=== PATIENT | female | born 2000 | race Caucasian/White ===

== ENCOUNTER 2023-07-13 11:07 | Emergency (ER) | payer OTHER, SELFPAY ==
[2023-07-13 11:09] VITALS: BP 101/53; PULSE 63; RESP 18; TEMP 36.6; O2SAT 100; BMI 30.1
--- NOTE | 2023-07-13 11:10 | ECG_ITS ---
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 Measurements Intervals [place] Rate: 65 P: 0 CO: 157 QRS: 58 QRSD: 104 T: 52 QT: 443 QTc: 461 Interpretive Statements SINUS RHYTHM LOW QRS VOLTAGE IN PRECORDIAL LEADS [QRS DEFLECTION < 1.0 mV IN CHEST LEADS] POSSIBLE RIGHT VENTRICULAR CONDUCTION DELAY [RSR (QR) IN V1/V2] No previous ECG available for comparison Electronically Signed On 07-13-2023 23:22:49 CDT by Rory Lal M.D. [id number]
[2023-07-13 11:13] VITALS: BP 101/53; PULSE 73; O2SAT 100
[2023-07-13] MEDS: sodium chloride 0.9% 1,000 ML 999 ML IV (11:19)
--- NOTE | 2023-07-13 11:20 | W.ED.SYNCOPE ---
HPI - Syncope General: Chief Complaint: Syncope Stated Complaint: Syncope Time Seen by Provider: 07/13/23 11:09 Source: patient and EMS Mode of arrival: EMS Limitations: no limitations History of Present Illness: 23-year-old female states she is at work today she felt like she is getting lightheaded and fell like she is going to pass out. States she has had history of syncopal events states she had laid on the floor and then stood up and felt like she was going to pass out again. She denies ever passing out she was hypotensive at work in the 70s she denies any pain had some slight nausea her vitals are improved here she states she feels much improved. Denies any headache Associated symptoms: Reports nausea; Deny abdominal pain, chest pain, fever(s) or headache(s) Review of Systems Const: Denies: fever(s), chills, body aches or change in appetite Eyes: Denies: eye discomfort ENMT: Denies: throat pain or dental pain Card: Reports: pre-syncope; Denies: chest pain Resp: Denies: dyspnea GI: Reports: nausea; Denies: abdominal pain, vomiting or diarrhea Musc: Denies: neck pain or back pain Skin/Breast: Denies: rash Neuro: Denies: headache(s) Physical Exam Const: COMMON NORMALS: patient oriented x3 HENMT: COMMON NORMALS: normocephalic and atraumatic HEAD & SCALP: normocephalic and atraumatic Neck/C-Spine: COMMON NORMALS: full ROM and supple Chest: COMMONS NORMALS: normal inspection of the chest Resp: COMMON NORMALS: normal respiratory effort, No retractions, No use of accessory muscles and clear to auscultation bilaterally AUSCULTATION: clear to auscultation bilaterally Cardio: COMMON NORMALS: regular rate, regular rhythm and No murmurs present (Cardio) RATE: regular rate RHYTHM: regular rhythm GI: COMMON NORMALS: Normal to inspection, nondistended, normoactive bowel sounds present, Soft to palpation, non-tender and no masses PALPATION: Yes Soft to palpation Extremity: COMMON NORMALS: normal to inspection and full ROM Neuro: COMMON NORMALS: patient oriented x3, moves all extremities and no focal motor deficits Psych: COMMON NORMALS: mental status grossly normal, Normal thought process present and cooperative THOUGHT PROCESS: Normal thought process present Skin: COMMON NORMALS: no rashes or lesions noted and no wounds GENERAL SKIN EXAM: no rashes or lesions noted Course Vital Signs: Vital signs: Vital Signs Temperature 97.9 F 07/13/23 11:09 Pulse Rate 68 07/13/23 12:06 Respiratory Rate 16 07/13/23 12:06 Blood Pressure 108/61 07/13/23 12:06 Pulse Oximetry 99 07/13/23 12:06 Oxygen Delivery Me thod Room Air 07/13/23 12:06 MDM - Syncope Medical Decision Making Patient presents here after syncopal event she has been well-appearing here EKG and blood work head CT here are all normal she has no complaints here has no signs of a PE she stable for discharge she is follow-up with PCP we will get her neurology follow-up as well return if worsening. Medical Records I reviewed the patient's medical records. Lab Data I reviewed the patient's lab results. 07/13/23 11:21 07/13/23 11:[address] 07/13/23 11:51 IMPRESSION: 1. No acute intracranial hemorrhage or edema. 2. RIGHT mastoid air cell effusions. There is a small amount of fluid also near the inner ear ossicles. Laboratory Results WBC 13.61 10^3/uL (3.29-11.43) H 07/13/23 11:21 RBC 4.21 10^6/uL (3.85-5.65) 07/13/23 11:21 Hgb 12.40 g/dL (11.27-16.99) 07/13/23 11:21 Hct 35.7 % (36-47) L 07/13/23 11:21 MCV 84.8 fl (85-98) L 07/13/23 11:21 MCH 29.5 pg (27-33) 07/13/23 11:21 MCHC 34.7 g/dL (30-55) 07/13/23 11:21 RDW 12.9 % (12.1-15.1) 07/13/23 11:21 Plt Count 346 10^3/cmm (157-399) 07/13/23 11:21 MPV 9.5 fL (7.4-10.4) 07/13/23 11:21 Neut % (Auto) 83.5 % 07/13/23 11:21 Lymph % (Auto) 9.6 % 07/13/23 11:21 [place] % (Auto) 5.7 % 07/13/23 11:21 Eos % (Auto) 0.4 % 07/13/23 11:21 Baso % (Auto) 0.4 % 07/13/23 11:21 Neut # (Auto) 11.37 10^3/uL (1.8-7.7) H 07/13/23 11:21 Lymph # (Auto) 1.3 10^3/uL (0.8-4.8) 07/13/23 11:21 [place] # (Auto) 0.8 10^3/uL (0.2-0.9) 07/13/23 11:21 Eos # (Auto) 0.1 10^3/uL (0.0-0.8) 07/13/23 11:21 Baso # (Auto) 0.1 10^3/uL (0.0-0.1) 07/13/23 11:21 Nucleated RBC % (auto) 0 % 07/13/23 11:21 Nucleated RBCs # 0.0 /100WBC 07/13/23 11:21 Sodium 138 mmol/L (136-145) 07/13/23 11:21 Potassium 4.2 mmol/L (3.5-5.1) 07/13/23 11:21 Chloride 107 mmol/L (98-107) 07/13/23 11:21 Carbon Dioxide 20 mmol/L (22-29) L 07/13/23 11:21 Anion Gap 15.2 (5-19) 07/13/23 11:21 BUN 9 mg/dL (6-20) 07/13/23 11:21 Creatinine 0.6 mg/dL (0.5-0.9) 07/13/23 11:21 GFR Calculation 123.9 mL/min (90-130) 07/13/23 11:21 Glucose 103 mg/dL (65-115) 07/13/23 11:21 Calculated Osmolality 285 mOsm/kg (285-295) 07/13/23 11:21 Calcium 8.2 mg/dL (8.5-10.5) L 07/13/23 11:21 Total Bilirubin 0.2 mg/dL (0.15-1.2) 07/13/23 11:21 AST 14 U/L (0-32) 07/13/23 11:21 ALT 15 U/L (0-33) 07/13/23 11:21 Alkaline Phosphatase 65 U/L (35-105) 07/13/23 11:21 Total Protein 6.2 g/dL (6.6-8.7) L 07/13/23 11:21 Albumin 3.5 g/dL (3.5-5.2) 07/13/23 11:21 Globulin 2.7 g/dL (1.3-4.6) 07/13/23 11:21 HCG, Qual Negative (Negative) 07/13/23 11:21 No radiology studies performed this visit Discharge Plan Discharge Patient Disposition: Home Clinical Impression: Syncopal episodes Condition: Stable Prescriptions: No Action acetaminophen 500 mg Tablet 1,000 mg PO Q6H PRN (Reason: Pain) ondansetron 4 mg Tablet,Disintegrating 4 mg PO Q8H PRN (Reason: Nausea And Vomiting) Discharge Orders: Discharge ED (Routine); Ordered 07/13/23 Ordered By: Suman Dias Referrals: Chemo Maier MD [Physician] - 1-3 days Discharge Diet: Advance as tolerated Discharge Activity: Resume usual activity Patient Instructions: Syncope (ED) Coding Level of Care Code ED [facility] Specialist for Kelby Holguin
[2023-07-13 11:28] LABS: Basophils # 0.1 10^3/uL (0.0-0.1); Basophils % 0.4 %; Eosinophils # 0.1 10^3/uL (0.0-0.8); Eosinophils % 0.4 %; Hematocrit 35.7 % (36-47); Lymphocytes # 1.3 10^3/uL (0.8-4.8); Lymphocytes % 9.6 %; Mean Corpuscular HGB Conc 34.7 g/dL (30-55); Mean Corpuscular Hemoglobin 29.5 pg (27-33); Mean Corpuscular Volume 84.8 fl (85-98); Mean Platelet Volume 9.5 fL (7.4-10.4); Monocytes # 0.8 10^3/uL (0.2-0.9); Monocytes % 5.7 %; Neutrophils # 11.37 10^3/uL (1.8-7.7); Neutrophils % 83.5 %; Nucleated Red Blood Cells % 0 %; Platelet Count 346 10^3/cmm (157-399); Red Blood Count 4.21 10^6/uL (3.85-5.65); Red Cell Distribution Width 12.9 % (12.1-15.1); White Blood Count 13.61 10^3/uL (3.29-11.43)
[2023-07-13 11:44] LABS: Alanine Aminotransferase 15 U/L (0-33); Albumin Level 3.5 g/dL (3.5-5.2); Alkaline Phosphatase 65 U/L (35-105); Anion Gap 15.2 (5-19); Aspartate Amino Transferase 14 U/L (0-32); Blood Urea Nitrogen 9 mg/dL (6-20); Calcium 8.2 mg/dL (8.5-10.5); Carbon Dioxide 20 mmol/L (22-29); Chloride 107 mmol/L (98-107); Creatinine Clr Calc Pharmacy 143.3839; Globulin 2.7 g/dL (1.3-4.6); Glomerular Filtration Rate 123.9 mL/min (90-130); Glucose 103 mg/dL (65-115); HCG, Serum Qual Negative (Negative); Osmolality Calculated 285 mOsm/kg (285-295); Potassium 4.2 mmol/L (3.5-5.1); Sodium 138 mmol/L (136-145); Total Bilirubin 0.2 mg/dL (0.15-1.2); Total Protein 6.2 g/dL (6.6-8.7)
--- NOTE | 2023-07-13 11:51 | CT_ITS ---
WS: [id number] CT HEAD NONCONTRAST HISTORY: syncope TECHNIQUE: Contiguous axial imaging performed through the brain in 2.5 mm imaging. Bone and soft tiss ue windows. Sagittal and coronal reformats reviewed. All CT scans at [facility] use at least one of these dose optimization techniques: automated exposure control; mA and/or kV adjustment per pa tient size (includes targeted exams where dose is matched to clinical indication); or iterative recon struction. DLP: 1083.75 mGy.cm COMPARISON: None available. No acute intracranial hemorrhage, midline shift or mass effect. No atrophy or prior infarcts or herniation. Ventricles: Normal size with no hydrocephalus. Paranasal sinuses: As visualized are clear. Mastoid air cells: Diffuse fluid attenuation within the RIGHT mastoid air cells. Small amount of flui d in the middle ear by the ossicles. Calvarium and scalp: Skull is intact with no soft tissue edema or swelling. CT/CT head wo con* [id number] IMPRESSION: 1. No acute intracranial hemorrhage or edema. 2. RIGHT mastoid air cell effusions. There is a small amount of fluid also chase r the inner ear ossicles.
[2023-07-13 12:06] VITALS: BP 108/61; PULSE 68; RESP 16; O2SAT 99
[2023-07-13 12:24] VITALS: BP 121/60; PULSE 65; RESP 16; O2SAT 100
--- NOTE | 2023-07-14 08:19 | DCPLANNER ---
Message sent to Neurology for follow up on Syncope
== END 2023-07-13 12:39 | disposition home or self-care (01) ==
PROVIDERS: Emergency Provider Emergency Medicine
DX: R55 Syncope and collapse (principal)
CPT/HCPCS: 70450; 80053; 84703; 85025; 93005; 99284; J7030